=== PATIENT | female | born 1935 | race Caucasian/White ===

== ENCOUNTER 2022-10-18 08:24 | Outpatient (CLI) | payer MEDICARE, BC, SELFPAY | END 2022-10-18 08:25 | disposition home or self-care (01) | LOC: INJ CL 08:28 | PROVIDERS: PCP Nurse Practitioner Family; Visit Provider Family Medicine | DX: M51.36 Other intervertebral disc degeneration, lumbar region (principal); M54.16 Radiculopathy, lumbar region | CPT/HCPCS: 62323; J0702; Q9966 ==

== ENCOUNTER 2025-02-25 12:46 | Outpatient (CLI) | payer BC, SELFPAY | END 2025-02-25 12:47 | disposition home or self-care (01) | LOC: INJ CL 12:46 | PROVIDERS: PCP Nurse Practitioner Family; Visit Provider Family Medicine | DX: M54.16 Radiculopathy, lumbar region (principal); M51.369 Other intervertebral disc degeneration, lumbar region without mention of lumbar back pain or lower extremity pain | CPT/HCPCS: 62323; J0702; Q9966 ==

== ENCOUNTER 2025-08-19 10:35 | Outpatient (CLI) | payer BC, SELFPAY | END 2025-08-19 10:36 | disposition home or self-care (01) | LOC: INJ CL 10:36 | PROVIDERS: PCP Nurse Practitioner Family; Visit Provider Family Medicine | DX: M54.16 Radiculopathy, lumbar region (principal); M51.369 Other intervertebral disc degeneration, lumbar region without mention of lumbar back pain or lower extremity pain | CPT/HCPCS: 62323; J0702; Q9966 ==